=== PATIENT | male | born 1990 | race Hispanic/Latino ===

== ENCOUNTER 2020-03-29 00:05 | Emergency (ER) | payer BC ==
[~2020-03-29] VITALS: Ht 182.9 cm; Wt 106.6 kg
--- OUTSIDE RECORDS SUMMARY | 2020-03-29 00:07 | XMS REPORT ---
Author Author [facility] t Organization [facility] Address [address] [place] [address] Phone Unavailable Care Team Providers Care Bonding Agent Name Role Phone MATY LIRA M.D. Attphys Unavailable YANDEL DEE M.D. Attphyoh Unavailable Problems Condition Name Condition Details Condition Category Status Onset Date Resolution Date Last Treatment Date Treating Clinician Comments Source Obesity (BMI 30-39.9) Obesity (BMI 30-39.9) Problem Active [facility] Blood in stool Blood in stool Problem Active [facility] Abdominal pain, LUQ (left upper quadrant) Abdominal pa in, LUQ (left upper quadrant) Problem Active [facility] Anemia Anemia Problem Active [facility] Rectal bleeding Rectal bleeding Problem Active [facility] Abdominal pain Abdominal pain Problem Active [facility] Allergies, Adverse Reactions, Alerts This patient has no known allergies or adverse reactions. Social History Smoking Status Start Date Stop Date Source Smokes tobacco daily (finding) [facility] Medications Ordered Medication Name Filled Medication Name Start Date Stop Da te Current Medication? Ordering Clinician Indication Dosage Frequency Signature (SIG) Comments Components Source PEG-3350/Electrolytes 236 GM Oral Solution Reconstitut ed PEG-3350/Electrolytes 236 GM Oral Solution Reconstituted 2020-02-28 00:00:00 Yes MATY LIRA M.D. MIX DIRECTED AND DRINK OVER 4 HOURS, START A T 4PM. [facility] Omeprazole 40 MG Oral Capsule Delayed Release Omeprazo le 40 MG Oral Capsule Delayed Release 2020-02-25 00:00:00 Yes YANDEL DEE M.D. TAKE 1 CAPSULE DAILY. [facility] Vital Signs Vital Name Observation Time Observation Value Comments Source Systolic blood pressure 2020-02-28 12:47:00 114 mm[Hg] Loca tion: LUE; Position: Sitting [facility] Diastolic blood pressure 2020-02-28 12:47:00 67 mm[Hg] Loc ation: LUE; Position: Sitting [facility] Body height 2020-02-28 12:47:00 72 [in_us] [facility] Weight 2020-02-28 12:47:00 243 [lb_av] [facility] Body mass index (BMI) [Ratio] 2020-02-28 12:47:00 32.96 kg/m2 [facility] Heart Rate 2020-02-28 12:47:00 67 /min Location: L Brachial Artery; [facility] Respiratory rate 2020-02-28 12:47:00 18 /min [facility] Systolic blood pressure 2020-02-25 14:30:00 119 mm[Hg] Loca tion: LUE; Position: Sitting [facility] Diastolic blood pressure 2020-02-25 14:30:00 72 mm[Hg] Loc ation: LUE; Position: Sitting [facility] Weight 2020-02-25 14:30:00 242.3125 [lb_av] [facility] Body temperature 2020-02-25 14:30:00 97.9 [degF] Method: Temporal [facility] Heart Rate 2020-02-25 14:30:00 84 /min [facility] Respiratory rate 2020-02-25 14:30:00 16 /min [facility] Body height 2020-02-25 14:30:00 72 [in_us] [facility] Body mass index (BMI) [Ratio] 2020-02-25 14:30:00 32.86 kg/m2 [facility] Procedures Procedure Date / Time Performed Performing Clinician Sourkatarzyna e Colonoscopy 2020-02-28 00:00:00 [facility] EGD (Esophagogastroduodenoscopy) 2020-02-28 00:00:00 [facility] [QL] CMP W/EGFR 2020-02-25 00:00:00 [place] [facility] [QL] CBC (INCLUDES DIFF/PLT) 2020-02-25 00:00:00 [facility] [QL] LIPID PANEL 2020-02-25 00:00:00 [facility] Plan of Care Planned Activity Planned Date Details Comments Source Future Scheduled Test 2020-03-03 00:00:00 Colonoscopy [code = 18550 001] [facility] Future Scheduled Test 2020-03-03 00:00:00 EGD (Esophagogastr oduodenoscopy) [code = EGD (Esophagogastroduodenoscopy)] [facility] Future Scheduled Test 2020-03-03 00:00:00 Colonoscopy [code = 77498 001] [facility] Future Scheduled Test 2020-03-03 00:00:00 EGD (Esophagogastr oduodenoscopy) [code = EGD (Esophagogastroduodenoscopy)] [facility] Encounters Start Date/Time End Date/Time Encounter Type [facility] ID Source 2020-02-28 13:00:00 2020-02-28 13:00:00 Appointment; MATY LIRA M.D. CATALANO, MARC, M.D. [place] [id number] [facility] 2020-02-25 13:45:00 2020-02-25 13:45:00 Appointment; YANDEL DEE M.D. JAYSWAL, MALAY, M.D. [facility] [id number] [facility] Results Test Description Test Time Test Comments Results Result Comments Source [QL] LIPID PANEL 2020-02-25 15:25:00 Test Item CHOLESTEROL, TOTAL; Normal (test code = 2093-3) 166 mg/dl <200 N HDL CHOLESTEROL; Normal (test code = 2085-9) 42 mg/dl > OR = 40 N TRIGLYCERIDES; Above High Threshold (test code = 2571-8) 307 mg/dl <150 If a non-fasting specimen was collected, considerrepeat triglyceride testing on a fasting specimenif clinically indicated. Carlito et al. J. of Clin. Lipidol. 2015;9:129-169. LDL-CHOLESTEROL; Normal (test code = 44129-0) 87 {MG/DL LAYLA} N Reference range: <100 Desirable range <100 mg/dL for primary prevention; <70 mg/dL for patients with CHD or diabetic patients with > or = 2 CHD risk factors. LDL-C is now calculated using the Bharathi-Karuna calculation, which is a validated novel method providing better accuracy than the Friedewald equation in the estimation of LDL-C. Bharathi SS et al. LUZMARIA. 2013;310(19): 9051-8003 (http ://education.Quest[employer].Omada/faq/WXV047) CHOL/HDLC RATIO (test code = CHOL/HDLC RATIO) 4.0 {CALC} <5.0 N NON HDL CHOLESTEROL (test code = NON HDL CHOLESTEROL) 124 {MG/DL C AL} <130 N For patients with diabetes plus 1 major ASCVD risk factor, treating to a non-HDL-C goal of <100 mg/dL (LDL-C of <70 mg/dL) is considered a therapeutic option. [facility][QL] CMP [id number] 15:25:00* Test Item Value Reference Range Interpretation Comments GLUCOSE; Normal (test code = 1547-9) 100 mg/dl 65-139 N Non-fasting reference interval UREA NITROGEN (BUN) (test code = UREA NITROGEN (BUN)) 15 mg/dl 7-25 N CREATININE (test code = CREATININE) 1.50 mg/dl 0.60-1.35 eGFR NON- (test code = eGFR NON-NONI N MAURITANIAN) 61 {ML/MIN/1.7} > OR = 60 N eGFR (test code = eGFR ) 70 {ML/MIN/1.7} > OR = 60 N BUN/CREATININE RATIO (test code = BUN/CREATININE RATIO) 10 {CALC} 6-22 N SODIUM (test code = SODIUM) 142 mmol/L 135-146 N POTASSIUM (test code = POTASSIUM) 4.2 mmol/L 3.5-5.3 N CHLORIDE (test code = CHLORIDE) 107 mmol/L 98-110 N CARBON DIOXIDE (test code = CARBON DIOXIDE) 26 mmol/L 20-32 N CALCIUM (test code = CALCIUM) 9.0 mg/dl 8.6-10.3 N PROTEIN, TOTAL (test code = PROTEIN, TOTAL) 6.9 g/dl 6.1-8.1 N ALBUMIN (test code = ALBUMIN) 4.2 g/dl 3.6-5.1 N GLOBULIN (test code = GLOBULIN) 2.7 {G/DL CALC} 1.9-3.7 N ALBUMIN/GLOBULIN RATIO (test code = ALBUMIN/GLOBULIN RATIO) 1.6 {CALC} 1.0-2.5 N BILIRUBIN, TOTAL; Normal (test code = 96983-8) 0.5 mg/dl 0.2-1.2 N ALKALINE PHSPHATASE (test code = ALKALINE PHSPHATASE) 72 u/l 36-130 N AST; Normal (test code = 1916-6) 17 u/l 10-40 N ALT; Normal (test code = 1742-6) 29 u/l 9-46 N [facility][QL] CBC (INCLUDES DIFF/PLT)2020-02-25 15:25:00* Test Item Value Reference Range Interpretation Comments WHITE BLOOD CELL COUNT (test code = WHITE BLOOD CELL COUNT) 5.8 {Thousand/u} 3.8-10.8 N RED BLOOD CELL COUNT (test code = RED BLOOD CELL COUNT) 4.35 {Million/uL} 4.20-5.80 N HEMAGLOBIN; Below Low Threshold (test code = 75863-9) 11.8 g/dl 13.2-17.1 HEMATOCRIT; Below Low Threshold (test code = 4544-3) 35.7 % 3 8.5-50.0 MCV; Normal (test code = 787-2) 82.1 fL 80.0-100.0 N MCHC; Normal (test code = 59389-4) 33.1 g/dl 32.0-36.0 N RDW; Above High Threshold (test code = 788-0) 15.2 % 11.0-15. 0 PLATELET COUNT; Normal (test code = 777-3) 273 {Thousand/u} 140-400 N MPV; Normal (test code = 15609-8) 11.4 fL 7.5-12.5 N ABSOLUTE NEUTROPHILS (test code = ABSOLUTE NEUTROPHILS) 3729 {cells/uL} 5067-1328 N ABSOLUTE LYMPHOCYTES (test code = ABSOLUTE LYMPHOCYTES) 1386 {cells/uL} 850-3900 N ABSOLUTE MONOCYTES (test code = ABSOLUTE MONOCYTES) 586 {cells/uL} 200-950 N ABSOLUTE EOSINOPHILS (test code = ABSOLUTE EOSINOPHILS) 81 {cells/u L} 15-500 N ABSOLUTE BASOPHILS (test code = ABSOLUTE BASOPHILS) 17 {cells/uL} 0 -200 N NEUTROPHILS (test code = NEUTROPHILS) 64.3 % N LYMPHOCYTES (test code = LYMPHOCYTES) 23.9 % N MONOCYTES; Normal (test code = 50608-1) 10.1 % N EOSINOPHILS; Normal (test code = 47677-9) 1.4 % N BASOPHILS; Normal (test code = 95367-0) 0.3 % N [facility]
--- OUTSIDE RECORDS SUMMARY | 2020-03-29 00:07 | XMS REPORT | Summary of Care ---
Author Author WERNER MALLOY APRN Organization Unknown Address Unknown Phone Unavailable Care Team Providers Care Snow Plow Operator Name Role Phone PANKAJ Matute, MATY Unavailable Unavailable YANDEL DEE M.D. Unavailable Unavailable YANDEL DEE MD Unavailable Unavailable Maty Sanchez MD Unavailable Unavailable Unavailable Unavailable Functional Status Name Dates Details Functional status health issues are not documented Status: Name Dates Details Cognitive status health issues are not d ocumented Status: Problems Name Dates Details Obesity (BMI 30-39.9) (278.00, E66.9) Status: Active Abdominal pain, LUQ (left upper quadrant ) (789.02, R10.12) Status: Active Blood in stool (578.1, K92.1) Status: Active Medications Name Dates Details Omeprazole 40 MG Oral Capsule Delayed Re lease TAKE 1 CAPSULE DAILY. Quantity: 14 LUIZ Matute, YANDEL * Start : 25-Feb-2020 Active Allergies and Adverse Reactions Name Dates Details No Known Drug Allergies (Allergy) Status : Active Procedures Procedure Dates Details Procedures not documented Immunization Name Dates Details Immunizations not documented Social History Name Dates Details - Status: Name Dates Details Smokes tobacco daily (finding) Vital Signs Date Test Result Details [id number] Systolic blood pressure 119 mm[Hg] Status: Comments : Location: LUE; Position: Sitting Diastolic blood pressure 72 mm[Hg] Status: Comment s: Location: LUE; Position: Sitting Body height 72 in Status: Body mass index (BMI) [Ratio] 32.86 kg/m2 Status: Body surface area Derived from formula 2.31 m2 S tatus: Weight 242.3125 lb Status: Body temperature 97.9 f Status: Comments: Me thod: Temporal Heart Rate 84 /min Status: Respiratory rate 16 /min Status: Physical Findings 8 Status: Comments: PH Q-9 Adult Depression Screening Results Date Description Value Details [id number] [QL] LIPID PANEL CHOLESTEROL, TOTAL 166 mg/dl (Normal) Range: <2 00 HDL CHOLESTEROL 42 mg/dl (Normal) Range: > OR = 40 TRIGLYCERIDES 307 mg/dl (Above high threshold ) Range: <150 Comments: If a non-fasting specimen was collected, considerrepeat triglyceride testing on a fasting specimenif clinically indicated. Carlito et al. J. of Clin. Lipidol. 2015;9:129-169. LDL-CHOLESTEROL 87 {MG/DL__CAL} (Normal) Commen ts: Reference range: <100 Desirable range <100 mg/dL for primary prevention; <70 mg/dL for patients with CHD or diabetic patients with > or = 2 CHD risk factors. LDL-C is now calculated using the Bharathi-Beckman calculation, which is a validated novel method providing better accuracy than the Friedewald equation in the estimation of LDL- C. Bharathi SS et al. LUZMARIA. 2013;310(19): 5136-0174 (http ://[employer]place/faq/XAR425) CHOL/HDLC RATIO 4.0 {CALC} (Normal) Range: <5.0 NON HDL CHOLESTEROL 124 {MG/DL__CAL} (Normal) R tasneem: <130 Comments: For patients with diabetes plus 1 major ASCVD risk factor, treating to a non-HDL-C goal of <100 mg/dL (LDL-C of <70 mg/dL) is considered a therapeutic option. [id number] [QL] CMP W/EGFR GLUCOSE 100 mg/dl (Normal) Range: 65-13 9 Comments: Non-fasting reference interval UREA NITROGEN (BUN) 15 mg/dl (Normal) Range: 7- 25 CREATININE 1.50 mg/dl (Above high threshol d) Range: 0.60-1.35 eGFR NON- 61 {ML/MIN/1.7} (Norm al) Range: > OR = 60 eGFR 70 {ML/MIN/1.7} (Normal) Range: > OR = 60 BUN/CREATININE RATIO 10 {CALC} (Normal) Range: 6-22 SODIUM 142 mmol/L (Normal) Range: 135- 146 POTASSIUM 4.2 mmol/L (Normal) Range: 3.5- 5.3 CHLORIDE 107 mmol/L (Normal) Range: 98-1 10 CARBON DIOXIDE 26 mmol/L (Normal) Range: 20-32 CALCIUM 9.0 mg/dl (Normal) Range: 8.6-1 0.3 PROTEIN, TOTAL 6.9 g/dl (Normal) Range: 6.1-8. 1 ALBUMIN 4.2 g/dl (Normal) Range: 3.6-5. 1 GLOBULIN 2.7 {G/DL__CALC} (Normal) Range : 1.9-3.7 ALBUMIN/GLOBULIN RATIO 1.6 {CALC} (Normal) Rang e: 1.0-2.5 BILIRUBIN, TOTAL 0.5 mg/dl (Normal) Range: 0.2- 1.2 ALKALINE PHSPHATASE 72 u/l (Normal) Range: 36-1 30 AST 17 u/l (Normal) Range: 10-40 ALT 29 u/l (Normal) Range: 9-46 [id number] [QL] CBC (INCLUDES DIFF/PLT) Comments: REPORT COMMENT:FASTING:NO WHITE BLOOD CELL COUNT 5.8 {Thousand/u} (Normal ) Range: 3.8-10.8 RED BLOOD CELL COUNT 4.35 {Million/uL} (Normal) Range: 4.20-5.80 HEMAGLOBIN 11.8 g/dl (Below low threshold) Range: 13.2-17.1 HEMATOCRIT 35.7 % (Below low threshold) Ra nge: 38.5-50.0 MCV 82.1 fL (Normal) Range: 80.0-10 0.0 MCH 27.1 pg (Normal) Range: 27.0-33 .0 MCHC 33.1 g/dl (Normal) Range: 32.0- 36.0 RDW 15.2 % (Above high threshold) R tasneem: 11.0-15.0 PLATELET COUNT 273 {Thousand/u} (Normal) Range : 140-400 MPV 11.4 fL (Normal) Range: 7.5-12. 5 ABSOLUTE NEUTROPHILS 3729 {cells/uL} (Normal) R tasneem: 3617-5611 ABSOLUTE LYMPHOCYTES 1386 {cells/uL} (Normal) R tasneem: 850-3900 ABSOLUTE MONOCYTES 586 {cells/uL} (Normal) Rang e: 200-950 ABSOLUTE EOSINOPHILS 81 {cells/uL} (Normal) Ran ge: 15-500 ABSOLUTE BASOPHILS 17 {cells/uL} (Normal) Range : 0-200 NEUTROPHILS 64.3 % (Normal) LYMPHOCYTES 23.9 % (Normal) MONOCYTES 10.1 % (Normal) EOSINOPHILS 1.4 % (Normal) BASOPHILS 0.3 % (Normal) Plan of Care Name Dates Details Planned Observations Planned Goals not documented Planned Encounters Appointment; MATY SANCHEZ M.D. On: 28-Feb-2020 13:00 Instructions Name Dates Details Instructions not documented Encounters Appointment; YANDEL DEE M.D. Encounter Diagnosis: Problem not documented On: 25-Feb-2020 13:45 Appointment; MATY SANCHEZ M.D. Encounter Diagnosis: Problem not documented On: 28-Feb-2020 13:00
--- OUTSIDE RECORDS SUMMARY | 2020-03-29 00:07 | XMS REPORT | Summary of Care ---
Author Author WERNER DEE M.D. Organization Unknown Address Unknown Phone Unavailable Care Team Providers Care Dairy Farm Supervisor Name Role Phone YANDEL DEE M.D. Unavailable Unavailable YANDEL DEE MD Unavailable Unavailable Maty Sanchez MD Unavailable Unavailable Unavailable Unavailable Functional Status Name Dates Details Functional status health issues are not documented Status: Name Dates Details Cognitive status health issues are not d ocumented Status: Problems Name Dates Details Blood in stool (578.1, K92.1) Status: Active Obesity (BMI 30-39.9) (278.00, E66.9) Status: Active Abdominal pain, LUQ (left upper quadrant ) (789.02, R10.12) Status: Active Medications Name Dates Details Omeprazole [...] (finding) Vital Signs Date Test Result Details :30 Systolic blood pressure 119 mm[Hg] Status: Comments [...] Depression Screening Results Date Description Value Details [id number] [QL] LIPID PANEL CHOLESTEROL, TOTAL 166 mg/dl [...] C. Bharathi SS et al. LUZMARIA. 2013;310(19): 5584-7410 (http ://[employer]atch.OPENLANE/faq/HNM951) CHOL/HDLC RATIO 4.0 {CALC} (Normal) Range: <5.0 NON HDL CHOLESTEROL 124 {MG/DL__CAL} (Normal) R tasneem: <130 Comments: For patients with diabetes plus 1 major ASCVD risk factor, treating to a non-HDL-C goal of <100 mg/dL (LDL-C of <70 mg/dL) is considered a therapeutic option. [id number] [QL] CMP W/EGFR GLUCOSE 100 mg/dl (Normal) [...] 10-40 ALT 29 u/l (Normal) Range: 9-46 [id number] [QL] CBC (INCLUDES DIFF/PLT) Comments: REPORT COMMENT:FASTING:NO [...] ABSOLUTE NEUTROPHILS 3729 {cells/uL} (Normal) R tasneem: 0340-8651 ABSOLUTE LYMPHOCYTES 1386 {cells/uL} (Normal) R tasneem: [...] Appointment; MATY SANCHEZ M.D. On: 28-Feb-2020 13:00 Interventions Provided Discussion/Summary* Patient informed normal CMP except for mildly elevated creatnine, normal Lipid panel except for elevated TAG (was not fasting) and does have low hemoglobin advised that does need further work up has appt with GI in 2 days. Instructions Name Dates Details Instructions not documented Encounters Appointment; YANDEL DEE M.D. Encounter Diagnosis: Problem not documented On: 25-Feb-2020 13:45
--- OUTSIDE RECORDS SUMMARY | 2020-03-29 00:07 | XMS REPORT | Summary of Care ---
Author WERNER Gonsales Martine Organization Unknown Address [facility] Phone Unavailable Care Team Providers Care Keysmith Name Role Phone LUIZ Matute, CROATIAN Unavailable Unavailable YANDEL DEE MD Unavailable Unavailable [...] 1 CAPSULE DAILY. Quantity: 14 LUIZ Matute, CROATIAN * Start : 25-Feb-2020 Active Allergies and [...] Depression Screening Results Date Description Value Details [id number] [QL] LIPID PANEL CHOLESTEROL, TOTAL 166 mg/dl [...] C. Bharathi SS et al. LUZMARIA. 2013;310(19): 9027-2084 (http ://[employer]it.PharmatrophiX/faq/PRV076) CHOL/HDLC RATIO 4.0 {CALC} (Normal) Range: <5.0 NON HDL CHOLESTEROL 124 {MG/DL__CAL} (Normal) R tasneem: <130 Comments: For patients with diabetes plus 1 major ASCVD risk factor, treating to a non-HDL-C goal of <100 mg/dL (LDL-C of <70 mg/dL) is considered a therapeutic option. [id number] [QL] CMP W/EGFR GLUCOSE 100 mg/dl (Normal) [...] 10-40 ALT 29 u/l (Normal) Range: 9-46 [id number] [QL] CBC (INCLUDES DIFF/PLT) Comments: REPORT COMMENT:FASTING:NO [...] ABSOLUTE NEUTROPHILS 3729 {cells/uL} (Normal) R tasneem: 7609-1144 ABSOLUTE LYMPHOCYTES 1386 {cells/uL} (Normal) R tasneem: [...]
--- OUTSIDE RECORDS SUMMARY | 2020-03-29 00:07 | XMS REPORT | Summary of Care ---
Author Author WERNER Montanez M.A. [facility] Unknown Address Unknown Phone Unavailable Care Team Providers Care Sample Driller Name Role Phone YANDEL DEE M.D. Unavailable Unavailable YANDEL DEE MD Unavailable Unavailable Unavailable Unavailable Functional Status Name Dates Details Functional status health issues are not documented Status: Name Dates Details Cognitive status health issues are not d ocumented Status: Problems Name Dates Details Obesity (BMI 30-39.9) (278.00, E66.9) Status: Active Blood in stool (578.1, K92.1) Status: Active Medications Name Dates Details Omeprazole 40 MG Oral Capsule Delayed Re lease TAKE 1 CAPSULE DAILY. Quantity: 14 LUIZ Matute, YANDEL * Start : 25-Feb-2020 Active Allergies and Adverse Reactions Name Dates Details No Known Drug Allergies (Allergy) Status : Active Procedures Procedure Dates Details [QL] CMP W/EGFR Date: 25-Feb-2020 [QL] CBC (INCLUDES DIFF/PLT) Date: 25-Feb-2020 [QL] LIPID PANEL Date: 25-Feb-2020 Immunization Name Dates Details Immunizations not documented Social History Name Dates Details - Status: Name Dates Details Smokes tobacco daily (finding) Vital Signs Date Test Result Details [id number] Systolic blood pressure 119 mm[Hg] Status: Comments : Location: LUE; Position: Sitting Diastolic blood pressure 72 mm[Hg] Status: Comment s: Location: LUE; Position: Sitting Weight 242.3125 lb Status: Body temperature 97.9 f Status: Comments: Me thod: Temporal Heart Rate 84 /min Status: Respiratory rate 16 /min Status: Physical Findings 8 Status: Comments: PH Q-9 Adult Depression Screening Results Date Description Value Details Results not documented Plan of Care Name Dates Details Planned Observations Planned Goals not documented Planned Encounters Gastroenterology Referral Interventions Provided Medication Changes* Omeprazole 40 MG Oral Capsule Delayed Release - Start Labs/Procedures/Imaging* [QL] CBC (INCLUDES DIFF/PLT); To Be Done: 25 Feb 2020 * [QL] CMP W/EGFR; To Be Done: 25 Feb 2020 * [QL] LIPID PANEL; To Be Done: 25 Feb 2020 * Tobacco Use Screening; Done: 25 Feb 2020 Instructions Name Dates Details Instructions not documented Encounters Appointment; YANDEL DEE M.D. Encounter Diagnosis: Problem not documented On: 25-Feb-2020 13:45
--- OUTSIDE RECORDS SUMMARY | 2020-03-29 00:07 | XMS REPORT | Summary of Care ---
Author Author WERNER Montanez M.A. [facility] Unknown Address Unknown Phone Unavailable Care Team Providers Care Chief Wellness Officer Name Role Phone LUIZ Matute, YANDEL Unavailable Unavailable YANDEL DEE MD Unavailable Unavailable [...] (finding) Vital Signs Date Test Result Details [id number] Systolic blood pressure 119 mm[Hg] Status: Comments [...] Goals not documented Planned Encounters Gastroenterology Referral Appointment; MATY SANCHEZ M.D. On: 28-Feb-2020 13:00 Interventions Provided Medication Changes* Omeprazole 40 MG [...]
--- OUTSIDE RECORDS SUMMARY | 2020-03-29 00:07 | XMS REPORT | Summary of Care ---
Author Author WERNER DEE M.D. Organization Unknown Address Unknown Phone Unavailable Care Team Providers Care Secondary Education Professor Name Role Phone YANDEL DEE M.D. Unavailable Unavailable YANDEL DEE MD Unavailable Unavailable Maty Lira MD Unavailable Unavailable Unavailable Unavailable Functional Status [...] (finding) Vital Signs Date Test Result Details [id number] Systolic blood pressure 119 mm[Hg] Status: Comments [...] documented Planned Encounters Gastroenterology Referral Appointment; MATY LIRA M.D. On: 28-Feb-2020 13:00 Interventions Provided Medication Changes* Omeprazole 40 MG Oral Capsule Delayed Release - Start Labs/Procedures/Imaging* Tobacco Use Screening; Done: 25 Feb 2020 * Tobacco Use Screening; Done: 26 Feb 2020 Plan* Blood in Stool * -- concerns for Upper GI bleed, hemodynamically stable * -- will get lab work, start PPI, advised on quitting smoking, avoiding alcohol, avoiding spicy food * -- will refer to GI for EGD and possible Colonoscopy * -- ED precautions given * Obesity BMI 32 * -- discussed with patient healthy diet including incorporating fresh or frozen fruits, vegetables without added salt or sugars, increasing fiber in diet, low fat, low carb. * -- advised on regular exercise once feeling better * Alcohol Binge Drinking * -- advised on cutting back on alcohol intake when he does drink * Current 1/2 PPD smoker * -- Patient advised on the risks of continued smoking and benefits of quitting. * -- Patient advised on treatment options - risk/benefits/alternates and side effects. Discussion/Summary* DISCHARGE SUMMARY/INSTRUCTIONS: * - Medication benefits, risks, and side effects discussed with patient. * - ER precautions given. * - Patient advised to RTC if symptoms worsen or fail to improve. Instructions Name Dates Details Instructions not documented Encounters Appointment; YANDEL DEE M.D. Encounter Diagnosis: Problem not documented On: 25-Feb-2020 13:45
--- OUTSIDE RECORDS SUMMARY | 2020-03-29 00:08 | XMS REPORT | Summary of Care ---
Author Author WERNER Pham M.A. Organization Unknown Address [facility] Phone Unavailable Care Team Providers Care Brown Stock Washer Name Role Phone PANKAJ Matute, MATY Unavailable Unavailable YANDEL DEE M.D. Unavailable YANDEL DEE MD Unavailable Unavailable Maty [...] upper quadrant ) (789.02, R10.12) Status: Active Anemia (285.9, D64.9) Status: Active Anemia (285.9, D64.9) Status: Active Rectal bleeding (569.3, K62.5) Status: Active Medications Name Dates Details Omeprazole 40 MG Oral Capsule Delayed Re lease TAKE 1 CAPSULE DAILY. Quantity: 14 LUIZ Matute, YANDEL * Start : 25-Feb-2020 Active PEG-3350/Electrolytes 236 GM Oral Solution Reconstituted MIX DIRECTED AND DRINK OVER 4 HOURS, START AT 4PM. * Quantity: 1 Refills: 0 MATY SANCHEZ M.D. * Start : 28-Feb-2020 Active 4000 ML Bottle Allergies and Adverse Reactions Name Dates Details No Known Drug Allergies (Allergy) Status : Active Procedures Procedure Dates Details Procedures not documented Immunization Name Dates Details Immunizations not documented Social History Name Dates Details - Status: Name Dates Details Smokes tobacco daily (finding) Vital Signs Date Test Result Details [id number] Systolic blood pressure 114 mm[Hg] Status: Comments : Location: LUE; Position: Sitting Diastolic blood pressure 67 mm[Hg] Status: Comment s: Location: LUE; Position: Sitting Body height 72 in Status: Weight 243 lb Status: Body mass index (BMI) [Ratio] 32.96 kg/m2 Status: Body surface area Derived from formula 2.31 m2 S tatus: Heart Rate 67 /min Status: Comments: Lo cation: L Brachial Artery; Respiratory rate 18 /min Status: Physical Findings 10 Status: Comments: Pa in Scale :30 Systolic blood pressure 119 mm[Hg] Status: Comments : Location: LUE; Position: Sitting Diastolic blood pressure 72 mm[Hg] Status: Comment s: Location: LUE; Position: Sitting Body height 72 in Status: Weight 242.3125 lb Status: Body mass index (BMI) [Ratio] 32.86 kg/m2 Status: Body surface area Derived from formula 2.31 m2 S tatus: Heart Rate 84 /min Status: Respiratory rate 16 /min Status: Body temperature 97.9 f Status: Comments: Me thod: Temporal Physical Findings 8 Status: Comments: PH Q-9 Adult Depression Screening Results Date Description Value Details :25 [QL] LIPID PANEL CHOLESTEROL, TOTAL 166 mg/dl (Normal) Range: <2 00 HDL CHOLESTEROL 42 mg/dl (Normal) Range: > OR = 40 TRIGLYCERIDES 307 mg/dl (Above high threshold ) Range: <150 Comments: If a non-fasting specimen was collected, considerrepeat triglyceride testing on a fasting specimenif clinically indicated. Esteban et al. J. of Clin. Lipidol. 2015;9:129-169. LDL-CHOLESTEROL 87 {MG/DL__CAL} (Normal) Commen ts: Reference range: <100 Desirable range <100 mg/dL for primary prevention; <70 mg/dL for patients with CHD or diabetic patients with > or = 2 CHD risk factors. LDL-C is now calculated using the Billie calculation, which is a validated novel method providing better accuracy than the Friedewald equation in the estimation of LDL- C. Bharathi YUAN et al. LUZMARIA. 2013;310(19): 4617-3028 (http ://education.[employer]Si[employer].com/faq/ZMW081) CHOL/HDLC RATIO 4.0 {CALC} (Normal) Range: <5.0 NON HDL CHOLESTEROL 124 {MG/DL__CAL} (Normal) R tasneem: <130 Comments: For patients with diabetes plus 1 major ASCVD risk factor, treating to a non-HDL-C goal of <100 mg/dL (LDL-C of <70 mg/dL) is considered a therapeutic option. :25 [QL] CMP W/EGFR GLUCOSE 100 mg/dl (Normal) [...] 10-40 ALT 29 u/l (Normal) Range: 9-46 :25 [QL] CBC (INCLUDES DIFF/PLT) Comments: REPORT COMMENT:FASTING:NO [...] ABSOLUTE NEUTROPHILS 3729 {cells/uL} (Normal) R tasneem: [id number] ABSOLUTE LYMPHOCYTES 1386 {cells/uL} (Normal) R tasneem: [...] Details Planned Observations Planned Goals not documented Interventions Provided Medication Changes* PEG-3350/Electrolytes 236 GM Oral Solution Reconstituted - Start Plan* Plan Given his progressive rectal bleeding will proceed with upper endoscopy and colonoscopy. * Further studies pending the above test results Instructions Name Dates Details Instructions not documented Encounters Appointment; YANDEL DEE M.D. Encounter Diagnosis: Problem not documented On: 25-Feb-2020 13:45 Appointment; MATY SANCHEZ M.D. Encounter Diagnosis: Problem not documented On: 28-Feb-2020 13:00
--- OUTSIDE RECORDS SUMMARY | 2020-03-29 00:08 | XMS REPORT | Summary of Care ---
Author Author WERNER Aguilar M.A. Organization Unknown Address Unknown Phone Unavailable Care Team Providers Care Machine Worker Name Role Phone Froilan Aguilar M.A. Unavailable Unavailable MATY SANCHEZ M.D. Unavailable Unavailable LUIZ Matute, YANDEL Unavailable Unavailable YANDEL DEE [...] Active Rectal bleeding (569.3, K62.5) Status: Active Abdominal pain (789.00, R10.9) Status: Active Medications Name Dates Details Omeprazole [...] Status : Active Procedures Procedure Dates Details Colonoscopy Date: 28-Feb-2020 EGD (Esophagogastroduodenoscopy) Date: 28-Feb-2020 Immunization Name Dates Details Immunizations not documented Social History Name Dates Details - Status: Name Dates Details Smokes tobacco daily (finding) Vital Signs Date Test Result Details [id number] Systolic blood pressure 114 mm[Hg] Status: Comments [...] thod: Temporal Physical Findings 8 Status: Comments: Q-9 Adult Depression Screening Results Date Description [...] C. Bharathi YUAN et al. LUZMARIA. 2013;310(19): 3881-6395 (http ://education.[employer]/faq/DJC876) CHOL/HDLC RATIO 4.0 {CALC} (Normal) Range: <5.0 [...] ABSOLUTE NEUTROPHILS 3729 {cells/uL} (Normal) R tasneem: [phone] ABSOLUTE LYMPHOCYTES 1386 {cells/uL} (Normal) R tasneem: [phone] ABSOLUTE MONOCYTES 586 {cells/uL} (Normal) Rang e: 200-950 ABSOLUTE EOSINOPHILS 81 {cells/uL} (Normal) Ran ge: 15-500 ABSOLUTE BASOPHILS 17 {cells/uL} (Normal) Range : 0-200 NEUTROPHILS 64.3 % (Normal) LYMPHOCYTES 23.9 % (Normal) MONOCYTES 10.1 % (Normal) EOSINOPHILS 1.4 % (Normal) BASOPHILS 0.3 % (Normal) Plan of Care Name Dates Details Planned Observations Colonoscopy On: 03-Mar-2020 Intent EGD (Esophagogastroduodenoscopy) On: 03-Mar-2020 Intent Planned Goals not documented Planned Encounters Appointment; MATY SANCHEZ M.D. On: 03-Mar-2020 7:30 Instructions Name Dates Details Instructions not documented Encounters Appointment; YANDEL DEE M.D. Encounter Diagnosis: Problem not documented On: 25-Feb-2020 13:45 Appointment; MATY SANCHEZ M.D. Encounter Diagnosis: Problem not documented On: 28-Feb-2020 13:00
--- OUTSIDE RECORDS SUMMARY | 2020-03-29 00:08 | XMS REPORT | Summary of Care ---
Author Author WERNER Pham M.A. Organization Unknown Address [facility] Phone Unavailable Care Team Providers Care Slat Pickler Name Role Phone MATY SANCHEZ M.D. Unavailable Unavailable YANDEL DEE M.D. Unavailable YANDEL [...] (finding) Vital Signs Date Test Result Details [id number] Systolic blood pressure 114 mm[Hg] Status: Comments [...] C. Bharathi YUAN et al. LUZMARIA. 2013;310(19): 9944-9936 (http ://education.[employer]endscreen.whoplusyou/faq/JUX119) CHOL/HDLC RATIO 4.0 {CALC} (Normal) Range: <5.0 [...] ABSOLUTE NEUTROPHILS 3729 {cells/uL} (Normal) R tasneem: [id number] ABSOLUTE LYMPHOCYTES 1386 {cells/uL} (Normal) R tasneem: [...] Appointment; MATY SANCHEZ M.D. On: 03-Mar-2020 7:30 Interventions Provided Medication Changes* PEG-3350/Electrolytes 236 GM [...]
--- NOTE | 2020-03-29 00:47 | Emergency Department Note ---
History of Present Illnes History of Present Illness Chief Complaint: Abdominal Complaints History of Present Illness This is a 30 year old male presents with c/o left abd pain for a month. also reports blood in stool for 5 years. . Historian: Patient Arrival Mode: Car Onset (how long ago): month(s) (1) Location: left abd Quality: pain Radiation: non-radiation Severity: moderate Onset quality: gradual Duration (how long): month(s) (1) Timing of current episode: constant Progression: unchanged Chronicity: chronic Relieving factors: none Exacerbating factors: none Associated symptoms: other (blood in stool for 5 years) Treatments prior to arrival: none Past Medical/Family History Physician Review I have reviewed the patient's past medical and family history. Any updates have been documented here. Past Medical History Recent Fever: No Clinical Suspicion of Infectio: No New/Unexplained Change in Ment: No Past Medical History: None Past Surgical History: None Social History Smoking Cessation: Current every day smoker Counseling Performed: Yes Alcohol Use: Occasional Any Illegal Drug Use: No Family History Family history of heart diseas: No Other Last Tetanus: unk Review of Systems Review of Systems Constitutional: no symptoms EENTM: no symptoms Cardiovascular: no symptoms Respiratory: no symptoms Gastrointestinal: as per HPI Genitourinary: no symptoms Musculoskeletal: no symptoms Neurological: no symptoms Psychological: no symptoms Endocrine: no symptoms Hematological/Lymphatic: no symptoms Review of other systems All other systems reviewed and negative. Physical Exam Related Data Allergies: Coded Allergies: No Known Allergies (Unverified , 03/29/20) Triage Vital Signs Vital Signs Date Time Temp Pulse Resp B/P (MAP) Pulse Ox O2 Delivery O2 Flow Rate FiO2 03/29/20 00:37 98.0 62 22 134/94 99 Vital signs reviewed: Yes Physical Exam CONSTITUTIONAL Constitutional: well-developed, well-nourished HENT HENT: normocephalic, atraumatic, oropharynx clear/moist, nose normal HENT L/R: left ext ear normal, right ext ear normal EYES Eyes: PERRL, conjunctivae normal NECK Neck: ROM normal PULMONARY Pulmonary: effort normal, breath sounds normal CARDIOVASCULAR Cardiovascular: regular rhythm, heart sounds normal, capillary refill normal, normal rate GASTROINTESTINAL Abdominal: soft, bowel sounds normal, tender (mild tenderness to epigastric and left abd, ) GENITOURINARY Genitourinary: exam deferred SKIN Skin: warm, dry MUSCULOSKELETAL Musculoskeletal: ROM normal NEUROLOGICAL Neurological: alert, oriented x 3, no gross motor or sensory deficits PSYCHOLOGICAL Psychological: mood/affect normal, judgement normal Results Laboratory Laboratory Laboratory Tests Test 03/29/20 00:36 White Blood Count 5.11 x10e3/uL (4.8-10.8) Red Blood Count 4.23 x10e6/uL (4.3-5.7) Hemoglobin 11.4 g/dL (14.0-18.0) Hematocrit 35.7 % (38.2-49.6) Mean Corpuscular Volume 84.4 fL (81-99) Mean Corpuscular Hemoglobin 27.0 pg (28-32) Mean Corpuscular Hemoglobin Concent 31.9 g/dL (31-35) Red Cell Distribution Width 13.9 % (11.7-14.4) Platelet Count 217 x10e3/uL (140-360) Neutrophils (%) (Auto) 51.0 % (38.7-80.0) Lymphocytes (%) (Auto) 36.0 % (18.0-39.1) Monocytes (%) (Auto) 11.2 % (4.4-11.3) Eosinophils (%) (Auto) 1.2 % (0.0-6.0) Basophils (%) (Auto) 0.4 % (0.0-1.0) Neutrophils # (Auto) 2.6 (2.1-6.9) Lymphocytes # (Auto) 1.8 (1.0-3.2) Monocytes # (Auto) 0.6 (0.2-0.8) Eosinophils # (Auto) 0.1 (0.0-0.4) Basophils # (Auto) 0.0 (0.0-0.1) Absolute Immature Granulocyte (auto 0.01 x10e3/uL (0-0.1) Urine Color Yellow (YELLOW) Urine Clarity Clear (CLEAR) Urine pH 6.5 (5 - 7) Urine Specific [place] 1.025 (1.010-1.025) Urine Protein Negative (NEGATIVE) Urine Glucose (UA) Negative (NEGATIVE) Urine Ketones Negative (NEGATIVE) Urine Blood Negative (NEGATIVE) Urine Nitrite Negative (NEGATIVE) Urine Bilirubin Negative (NEGATIVE) Urine Urobilinogen 0.2 mg/dL (0.2 - 1) Urine Leukocyte Esterase Negative (NEGATIVE) Urine RBC 0-5 /HPF (0-5) Urine WBC 0-5 /HPF (0-5) Urine Epithelial Cells Rare /LPF (NONE) Urine Bacteria Rare /HPF (NONE) Urine Mucus Few (RARE) Sodium Level 142 mmol/L (136-145) Potassium Level 4.5 mmol/L (3.5-5.1) Chloride Level 107 mmol/L (98-107) Carbon Dioxide Level 26 mmol/L (22-29) Anion Gap 13.5 mmol/L (8-16) Blood Urea Nitrogen 15 mg/dL (7-26) Creatinine 1.67 mg/dL (0.72-1.25) Estimat Glomerular Filtration Rate 48 ML/MIN (60-) BUN/Creatinine Ratio 9 (6-25) Glucose Level 98 mg/dL (74-118) Calcium Level 9.0 mg/dL (8.4-10.2) Total Bilirubin 0.3 mg/dL (0.2-1.2) Aspartate Amino Transf (AST/SGOT) 36 IU/L (5-34) Alanine Aminotransferase (ALT/SGPT) 69 IU/L (0-55) Alkaline Phosphatase 78 IU/L (40-150) Total Protein 7.6 g/dL (6.5-8.1) Albumin 4.0 g/dL (3.5-5.0) Globulin 3.6 g/dL (2.3-3.5) Albumin/Globulin Ratio 1.1 (0.8-2.0) Amylase Level 94 U/L (25-125) Lipase 41 U/L (8-78) Lab results reviewed: Yes Imaging Imaging results reviewed: Yes Impressions Procedure: [id number] CT/CT ABDOMEN/PELVIS W Exam Date: 03/29/20 Exam Time: 0400 REPORT STATUS: Signed EXAM: CT Abdomen and Pelvis WITH contrast INDICATION: Left-sided abdominal pain with blood in stool. COMPARISON: None. TECHNIQUE: Abdomen and pelvis were scanned utilizing a multidetector helical scanner from the lung base to the pubic symphysis after administration of IV contrast. Coronal and sagittal reformations were obtained. Routine protocol was performed. Scan was performed during portal venous phase. IV CONTRAST: 100 cc of Isovue-370. ORAL CONTRAST: Water COMPLICATIONS: None RADIATION DOSE: Total DLP: 850.8 mGy*cm Estimated effective dose: (DLP x 0.015 x size factor) mSv CTDIvol has been reviewed. It is below the limits set by the Radiation Protocol Committee (RPC). FINDINGS: LINES and TUBES: None. LOWER THORAX: Unremarkable HEPATOBILIARY: No evidence of focal lesion. No biliary ductal dilation. GALLBLADDER: No radio-opaque stones or sludge. No wall thickening. SPLEEN: No splenomegaly. PANCREAS: No focal masses or ductal dilatation. ADRENALS: No adrenal nodules KIDNEYS/URETERS: Kidneys enhance symmetrically. No evidence of hydronephrosis or mass. Punctate 1 mm right mid and lower pole renal stones. GI TRACT: Mild apparent wall thickening in jejunal loops which appear decompressed. Portions of the transverse colon appear decompressed with mild fatty infiltration in the wall, with possible mild wall thickening. Tiny hiatal hernia. PELVIC ORGANS/BLADDER: Unremarkable. LYMPH NODES: No lymphadenopathy. VESSELS: Unremarkable. PERITONEUM / RETROPERITONEUM: No free air or fluid. BONES AND SOFT TISSUES: No acute osseous abnormality. No suspicious lytic or blastic lesions. Small fat-containing bilateral inguinal hernias. CONCLUSION: Apparent mild wall thickening within jejunal loops may represent decompression versus nonspecific enteritis, which may be infectious or inflammatory. Apparent mild wall thickening within portions of the transverse colon more likely represent decompression rather than acute colitis. However, there is possible mild fatty infiltration the wall, which may represent sequela of prior inflammation. In this patient with recurrent bright red blood per rectum, recommend follow-up colonoscopy. Diffuse mild hepatic steatosis. Nonobstructing punctate right nephrolithiasis. Signed by: Dr. Treva Michael MD on 03/29/2020 4:34 AM Dictated By: TREVA MICHAEL MD 3 Transcribed By: JUAN on 03/29/20433 COPY TO: EMMETT VALLE MD~ Critical Care Time Subsequent provider I assumed direction of critical care for this patient from another provider of my specialty. Assessment & Plan Assessment & Plan Final Impression: (1) Abdominal pain (2) Rectal bleeding Assessment & Plan pt with left abd pain for 1 month and reported blood in stool for 5 years, cbc, cmp, amylase, lipase, ct abd/pelvis ordered to eval for pancreatitis, colitis, diverticulitis, electrolyte abnormality, elevated lft's pt discharged to follow up with gi Depart Disposition: HOME, SELF-CARE Last Vital Signs Date Time Temp Pulse Resp B/P (MAP) Pulse Ox O2 Delivery O2 Flow Rate FiO2 03/29/20 00:37 98.0 62 22 134/94 99 EMMETT VALLE MD March 29, 2020 00:47
[2020-03-29 01:00] LABS: BASOPHILS % 0.4 % (0.0-1.0); EOSINOPHILS # (AUTO) 0.1 (0.0-0.4); EOSINOPHILS % 1.2 % (0.0-6.0); HEMATOCRIT 35.7 % (38.2-49.6); HEMOGLOBIN 11.4 g/dL (14.0-18.0); LYMPHOCYTES # (AUTO) 1.8 (1.0-3.2); MEAN CORPUSCULAR HGB CONC 31.9 g/dL (31-35); MEAN CORPUSCULAR VOLUME 84.4 fL (81-99); MONOCYTES # (AUTO) 0.6 (0.2-0.8); MONOCYTES % 11.2 % (4.4-11.3); NEUTROPHILS # (AUTO) 2.6 (2.1-6.9); PLATELET COUNT 217 x10e3/uL (140-360); RED BLOOD COUNT 4.23 x10e6/uL (4.3-5.7); RED CELL DISTRIBUTION WIDTH 13.9 % (11.7-14.4)
[2020-03-29 01:22] LABS: ALBUMIN/GLOBULIN RATIO 1.1 (0.8-2.0); ANION GAP 13.5 mmol/L (8-16); CREATININE, SERUM 1.67 mg/dL (0.72-1.25); POTASSIUM 4.5 mmol/L (3.5-5.1)
[2020-03-29 01:41] LABS: BACTERIA,URINE RARE /HPF; BILIRUBIN,URINE NEGATIVE (NEGATIVE); CLARITY,URINE CLEAR (CLEAR); COLOR,URINE YELLOW (YELLOW); EPITHELIAL CELLS,URINE RARE /LPF; KETONES,URINE NEGATIVE (NEGATIVE); LEUKOCYTE ESTERASE ,URINE NEGATIVE (NEGATIVE); MUCUS,URINE FEW (RARE); NITRITE,URINE NEGATIVE (NEGATIVE); PROTEIN,URINE DIPSTICK NEGATIVE (NEGATIVE); RBC,URINE 0-5 /HPF (0-5); URINE UROBILINOGEN 0.2 mg/dL (0.2 - 1); WBC,URINE (MAN) 0-5 /HPF (0-5)
[2020-03-29] MEDS ORDERED: PANTOPRAZOLE 40 MG 10ML VIAL IV STA (01:56)
[2020-03-29] MEDS ORDERED: SODIUM CHLORIDE 0.9% 1000ML 1,000 ML ONE (01:58)
[2020-03-29] MEDS ORDERED: SODIUM CHLORIDE 0.9% 1000ML 1,000 ML IV ONE (02:00)
[2020-03-29 03:06] LABS: AMYLASE 94 U/L (25-125); LIPASE 41 U/L (8-78)
[2020-03-29] MEDS ORDERED: IOPAMIDOL 370 MG/ML 200 ML INFUS..BTL INJ ONE (03:53)
[2020-03-29] MEDS ORDERED: SODIUM CHLORIDE 0.9% 50ML 50 ML ONE (03:54)
--- NOTE | 2020-03-29 04:38 | Diagnostic Imaging Report ---
EXAM: CT Abdomen and Pelvis WITH contrast INDICATION: Left-sided abdominal pain with blood in stool. COMPARISON: None. TECHNIQUE: Abdomen and pelvis were scanned utilizing a multidetector helical scanner from the lung base to the pubic symphysis after administration of IV contrast. Coronal and sagittal reformations were obtained. Routine protocol was performed. Scan was performed during portal venous phase. IV CONTRAST: 100 cc of Isovue-370. ORAL CONTRAST: Water COMPLICATIONS: None RADIATION DOSE: Total DLP: 850.8 mGy*cm Estimated effective dose: (DLP x 0.015 x size factor) mSv CTDIvol has been reviewed. It is below the limits set by the Radiation Protocol Committee (RPC). FINDINGS: LINES and TUBES: None. LOWER THORAX: Unremarkable HEPATOBILIARY: No evidence of focal lesion. No biliary ductal dilation. GALLBLADDER: No radio-opaque stones or sludge. No wall thickening. SPLEEN: No splenomegaly. PANCREAS: No focal masses or ductal dilatation. ADRENALS: No adrenal nodules KIDNEYS/URETERS: Kidneys enhance symmetrically. No evidence of hydronephrosis or mass. Punctate 1 mm right mid and lower pole renal stones. GI TRACT: Mild apparent wall thickening in jejunal loops which appear decompressed. Portions of the transverse colon appear decompressed with mild fatty infiltration in the wall, with possible mild wall thickening. Tiny hiatal hernia. PELVIC ORGANS/BLADDER: Unremarkable. LYMPH NODES: No lymphadenopathy. VESSELS: Unremarkable. PERITONEUM / RETROPERITONEUM: No free air or fluid. BONES AND SOFT TISSUES: No acute osseous abnormality. No suspicious lytic or blastic lesions. Small fat-containing bilateral inguinal hernias. CONCLUSION: Apparent mild wall thickening within jejunal loops may represent decompression versus nonspecific enteritis, which may be infectious or inflammatory. Apparent mild wall thickening within portions of the transverse colon more likely represent decompression rather than acute colitis. However, there is possible mild fatty infiltration the wall, which may represent sequela of prior inflammation. In this patient with recurrent bright red blood per rectum, recommend follow-up colonoscopy. Diffuse mild hepatic steatosis. Nonobstructing punctate right nephrolithiasis. Signed by: Dr. Treva Correa MD on 03/29/2020 4:34 AM
[2020-03-29 05:06] VITALS: BP 128/80
== END 2020-03-29 05:14 | disposition home or self-care (01) ==
LOC: EDBD 00:05 → ER 00:05
DX: R10.12 Left upper quadrant pain (principal); K62.5 Hemorrhage of anus and rectum
CPT/HCPCS: 36415; 74177; 80053; 81001; 82150; 83690; 85025; 99283; C9113; J7030; Q9967